=== PATIENT | female | born 1945 | race Asian ===

== ENCOUNTER 2019-10-20 11:43 | Emergency (ER) | payer OTHER ==
[~2019-10-20] VITALS: Ht 157.5 cm; Wt 47.2 kg
[~2019-10-20 11:43] MED LIST: ACTOS 30 MG TAB30 M2 PO; CALCIUM 600 +1 EAC1 PO; COZAAR 50 MG TA50 M1 PO; DOXYCYCLINE 10100 MG PO; FIBERCON625 M1 PO; FLEXERIL PO; FOSAMAX 70 MG T70 MG PO; GLUCOPHAGE500 MG PO; IBUPROFEN 400400 M1 PO; METFORMIN 500500 MG PO; MOTION RELIEF25 MG PO; MULTI-VITAMIN1 EAC5 PO; NORCO 5-325 TA1 EACH PO; PRAVASTATIN SOD40 MG PO; PRILOSEC20 MG PO; VITAMIN D1000 UNI1 PO; VITAMINC500 PO; ZOCOR 20 MG TAB20 M1 PO
[2019-10-20 12:43] LABS: HEMATOCRIT 37.8 % (37.0-47.0); HEMOGLOBIN 12.4 gm/dL (12.0-15.0); MCH 28.4 pg (26.0-34.0); MCHC 32.8 g/dL (28.0-37.0); MCV 86.6 fL (80.0-100.0); PLATELET COUNT 233 thou/uL (150-400); RBC 4.37 mil/uL (4.20-5.00); RDW 13.8 % (10.5-14.5)
[2019-10-20 12:52] LABS: ANION GAP 10 mmol/L (7-16); BUN 18 mg/dL (7-18); CHLORIDE 96 mmol/L (98-107); CO2 25 mmol/L (21-32); CREATININE 0.8 mg/dL (0.6-1.0); GLUCOSE 187 mg/dL (74-106); POTASSIUM 3.6 mmol/L (3.5-5.1); SODIUM 131 mmol/L (136-145)
[2019-10-20 13:02] LABS: ALBUMIN 3.4 g/dL (3.4-5.0); SGOT 16 U/L (15-37); SGPT 21 U/L (30-65); TOTAL PROTEIN 8.3 g/dL (6.4-8.2); TROPONIN-I <0.06 ng/mL (<0.06)
[2019-10-20 14:37] LABS: URINE BILIRUBIN NEGATIVE (Negative); URINE BLOOD TRACE (Negative); URINE CLARITY SL CLOUDY; URINE COLOR YELLOW; URINE GLUCOSE-RANDOM* NEGATIVE (Negative); URINE KETONES 1+ (Negative); URINE NITRITE-REFLEX NEGATIVE (Negative); URINE PROTEIN (DIPSTICK) NEGATIVE (Negative); URINE SPECIFIC GRAVITY <= 1.005 (1.005-1.035); URINE UROBILINOGEN 0.2 E.U./dl (0.2-1.0)
[2019-10-20 14:43] LABS: URINE LEUKOCYTES-REFLEX 3+ (Negative)
[2019-10-20 14:46] LABS: BACTERIA-REFLEX >30 Many /HPF (None Seen); CASTS None Seen /LPF (None Seen); CRYSTALS None Seen /LPF (None Seen); SQUAMOUS 0-3 Few /LPF (0-3); URINE RBC 0-2 Rare /HPF (0-2); URINE WBC-REFLEX >25 Many /HPF (0-5)
[2019-10-20] MEDS ORDERED: MACROBID 100 M100 MG PO (15:41)
[2019-10-20 16:50] VITALS: BP 148/84
--- NOTE | 2019-10-21 11:14 | EKG ---
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 : 1945 Requested By: Staci Mejia Order Number: [id number] MD: Tarun Lunsford Measurements Intervals [place] Rate: 71 P: 61 CT: 154 QRS: 93 QRSD: 130 T: 49 QT: 444 QTc: 483 Interpretive Statements Sinus rhythm RBBB and LPFB Baseline wander in lead(s) I Compared to ECG 06/24/2013 09:50:51 Left posterior fascicular block now present Electronically Signed On 10-21-2019 11:14:31 STE[employer] PAN SPONG[employer] by Tarun Lunsford [email or web address] <ELECTRONICALLY SIGNED> By: Tarun Lunsford MD 10/21/19 1114 1217 1217 Tarun Lunsford MD /EPI
--- NOTE | 2019-10-21 11:16 | EKG ---
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
== END 2019-10-20 16:50 | disposition home or self-care (01) ==
LOC: ER 11:43
PROVIDERS: Physician Assistant
DX: N39.0 Urinary tract infection, site not specified (principal); R53.1 Weakness; R42 Dizziness and giddiness; R55 Syncope and collapse; E11.9 Type 2 diabetes mellitus without complications; I10 Essential (primary) hypertension; K21.9 Gastro-esophageal reflux disease without esophagitis; J45.909 Unspecified asthma, uncomplicated; E78.00 Pure hypercholesterolemia, unspecified; Z88.6 Allergy status to analgesic agent; Z88.1 Allergy status to other antibiotic agents; Z88.2 Allergy status to sulfonamides; Z79.899 Other long term (current) drug therapy; Z90.89 Acquired absence of other organs

== ENCOUNTER 2020-07-06 23:28 | Emergency (ER) | payer OTHER ==
[~2020-07-06] VITALS: Ht 157.5 cm; Wt 46.3 kg
[~2020-07-06 23:28] MED LIST changes: +MACROBID 100 M100 MG PO
[2020-07-06] MEDS ORDERED: NORVASC 2.5 MG2.5 M1 PO (23:42)
[2020-07-07 00:29] VITALS: BP 144/63
== END 2020-07-07 00:33 | disposition home or self-care (01) ==
LOC: ER 23:28
DX: I10 Essential (primary) hypertension (principal); E11.9 Type 2 diabetes mellitus without complications; F41.9 Anxiety disorder, unspecified; K21.9 Gastro-esophageal reflux disease without esophagitis; J45.909 Unspecified asthma, uncomplicated; E78.5 Hyperlipidemia, unspecified; Z79.899 Other long term (current) drug therapy; Z88.1 Allergy status to other antibiotic agents; Z88.2 Allergy status to sulfonamides; Z88.8 Allergy status to other drugs, medicaments and biological substances